=== PATIENT | female | born 1950 | race Caucasian/White ===

== ENCOUNTER 2017-02-28 10:46 | Day surgery (SDCO) | payer OTHER ==
[~2017-02-28] VITALS: Ht 152.4 cm; Wt 59.0 kg
[2017-02-28 11:38] LABS: BASOPHIL 1.4 % (0-2); EOSINOPHIL 1.5 % (0-7); HCT 34.9 % (37.0-47.0); LYMPHOCYTE 17.3 % (15-48); MCH 32.9 pg (25.0-31.0); MCHC 31.5 g/dL (32.0-36.0); MCV 104.5 fL (78.0-100.0); MONOCYTE 9.3 % (0-12); MPV 10.3 fL (6.0-9.5); NEUTROPHIL 70.5 % (41-80); PLT 152 K/uL (150-400); RBC 3.34 M/uL (4.20-5.40); RDW 15.2 % (11.5-14.0); WBC 5.9 K/uL (4.0-10.5)
[2017-02-28 12:00] LABS: BILIRUBIN - TOTAL 0.4 mg/dL (0.1-1.0); GLOBULIN (CALCULATION) 3.1 g/dL (2.2-4.2); POTASSIUM 5.3 mmol/L (3.5-5.1); TOTAL PROTEIN 7.1 g/dL (6.4-8.3)
[2017-02-28 12:07] LABS: LACTIC ACID 1.3 mmol/L (0.5-2.2)
[2017-03-01 04:03] LABS: HCT 36.1 % (37.0-47.0); HGB 11.1 g/dl (12.5-16.0); MCH 32.8 pg (25.0-31.0); MCHC 30.7 g/dL (32.0-36.0); MCV 106.8 fL (78.0-100.0); RBC 3.38 M/uL (4.20-5.40); RDW 15.2 % (11.5-14.0); WBC 6.5 K/uL (4.0-10.5)
[2017-03-01 04:22] LABS: PHOSPHORUS 8.6 mg/dL (2.7-4.5); POTASSIUM 5.7 mmol/L (3.5-5.1)
[2017-03-01 04:50] LABS: CREATININE 11.9 mg/dL (0.5-1.0)
[2017-03-02 06:30] LABS: HCT 34.5 % (37.0-47.0); HGB 10.5 g/dl (12.5-16.0); MCH 32.3 pg (25.0-31.0); MCHC 30.4 g/dL (32.0-36.0); MCV 106.2 fL (78.0-100.0); MPV 10.8 fL (6.0-9.5); RBC 3.25 M/uL (4.20-5.40); RDW 14.9 % (11.5-14.0); WBC 5.5 K/uL (4.0-10.5)
[2017-03-02 06:58] LABS: POTASSIUM 5.4 mmol/L (3.5-5.1)
[2017-03-02 07:02] LABS: CREATININE 7.5 mg/dL (0.5-1.0)
== END 2017-03-02 17:00 | disposition home or self-care (01) ==
LOC: FER 10:46 → FMS 13:20
PROVIDERS: Internal Medicine; ADMIT Internal Medicine
DX: E11.622 Type 2 diabetes mellitus with other skin ulcer (principal); L97.819 Non-pressure chronic ulcer of other part of right lower leg with unspecified severity; I12.0 Hypertensive chronic kidney disease with stage 5 chronic kidney disease or end stage renal disease; E11.22 Type 2 diabetes mellitus with diabetic chronic kidney disease; N18.6 End stage renal disease; Z99.2 Dependence on renal dialysis; E78.5 Hyperlipidemia, unspecified; F32.9 Major depressive disorder, single episode, unspecified; K21.9 Gastro-esophageal reflux disease without esophagitis; G43.909 Migraine, unspecified, not intractable, without status migrainosus; J45.909 Unspecified asthma, uncomplicated; Z87.442 Personal history of urinary calculi; Z90.49 Acquired absence of other specified parts of digestive tract; Z90.710 Acquired absence of both cervix and uterus; Z90.722 Acquired absence of ovaries, bilateral; Z88.0 Allergy status to penicillin; Z88.2 Allergy status to sulfonamides; Z79.4 Long term (current) use of insulin; Z79.82 Long term (current) use of aspirin; Z79.899 Other long term (current) drug therapy; Z98.890 Other specified postprocedural states
CPT/HCPCS: 36415; 73718; 80048; 80053; 82962; 83605; 83970; 84100; 85025; 85651; 87040; 87070; 87205; 93971; 94010; G0378; J1170; J1644; J2405; J3370

== ENCOUNTER 2017-03-07 10:58 | Emergency (ER) | payer OTHER ==
[2017-03-07 11:44] LABS: EOSINOPHIL 0.7 % (0-7); HCT 36.7 % (37.0-47.0); LYMPHOCYTE 11.8 % (15-48); MCH 33.1 pg (25.0-31.0); MCHC 32.7 g/dL (32.0-36.0); MCV 101.1 fL (78.0-100.0); MONOCYTE 12.1 % (0-12); MPV 10.2 fL (6.0-9.5); NEUTROPHIL 74.4 % (41-80); PLT 134 K/uL (150-400); RBC 3.63 M/uL (4.20-5.40); RDW 14.9 % (11.5-14.0); WBC 6.1 K/uL (4.0-10.5)
[2017-03-07 12:02] LABS: LACTIC ACID 1.8 mmol/L (0.5-2.2)
[2017-03-07 12:03] LABS: ALBUMIN 4.1 g/dL (3.4-4.8); BILIRUBIN - TOTAL 0.4 mg/dL (0.1-1.0); GLOBULIN (CALCULATION) 3.6 g/dL (2.2-4.2); TOTAL PROTEIN 7.7 g/dL (6.4-8.3)
[2017-03-07 12:15] LABS: CREATININE 9.4 mg/dL (0.5-1.0)
== END 2017-03-07 14:41 | disposition home or self-care (01) ==
LOC: FER 10:58
PROVIDERS: Nurse Practitioner
DX: M25.561 Pain in right knee (principal); G89.29 Other chronic pain; E11.9 Type 2 diabetes mellitus without complications; M19.90 Unspecified osteoarthritis, unspecified site; Z79.4 Long term (current) use of insulin; Z88.0 Allergy status to penicillin; Z88.2 Allergy status to sulfonamides; Z79.899 Other long term (current) drug therapy
CPT/HCPCS: 36415; 80053; 83605; 85025; 85651; 93971; J1100; J1885; J2270; J2405

== ENCOUNTER 2017-06-01 03:21 | Inpatient (IN) | payer MEDICARE, OTHER ==
[~2017-06-01] VITALS: Ht 165.1 cm; Wt 107.8 kg
[2017-06-01 03:48] LABS: BASOPHIL 0.5 % (0-2); EOSINOPHIL 0.9 % (0-7); HCT 31.1 % (37.0-47.0); HGB 10.2 g/dl (12.5-16.0); LYMPHOCYTE 8.8 % (15-48); MCH 32.4 pg (25.0-31.0); MCHC 32.8 g/dL (32.0-36.0); MCV 98.7 fL (78.0-100.0); MONOCYTE 6.9 % (0-12); MPV 10.1 fL (6.0-9.5); NEUTROPHIL 82.9 % (41-80); PLT 117 K/uL (150-400); RBC 3.15 M/uL (4.20-5.40); RDW 14.9 % (11.5-14.0); WBC 7.6 K/uL (4.0-10.5)
[2017-06-01 03:55] LABS: INR 1.15 (0.9-1.2); PROTHROMBIN TIME 13.8 SECONDS (11.4-13.2); PTT 37.2 SECONDS (24.3-32.1)
[2017-06-01 04:05] LABS: CKMB 2.75 ng/mL (0.97-4.94); MYOGLOBIN 149 ng/mL (26-65)
[2017-06-01 04:06] LABS: BILIRUBIN - TOTAL 0.5 mg/dL (0.1-1.0); CREATININE 7.1 mg/dL (0.5-1.0); GLOBULIN (CALCULATION) 4.3 g/dL (2.2-4.2); PRO-BNP > 35000 pg/mL (0-125); TOTAL PROTEIN 8.3 g/dL (6.4-8.3)
[2017-06-01 14:19] LABS: CKMB 7.04 ng/mL (0.97-4.94)
[2017-06-01 14:22] LABS: TROPONIN T 0.22 ng/mL
[2017-06-02 07:34] LABS: CREATININE 5.7 mg/dL (0.5-1.0); POTASSIUM 4.4 mmol/L (3.5-5.1)
[2017-06-03 05:04] LABS: BASOPHIL 0.2 % (0-2); EOSINOPHIL 0 % (0-7); HCT 27.3 % (37.0-47.0); HGB 8.6 g/dl (12.5-16.0); LYMPHOCYTE 12.2 % (15-48); MCH 31.2 pg (25.0-31.0); MCHC 31.5 g/dL (32.0-36.0); MCV 98.9 fL (78.0-100.0); MONOCYTE 5.9 % (0-12); PLT 107 K/uL (150-400); RBC 2.76 M/uL (4.20-5.40); RDW 14.9 % (11.5-14.0); WBC 4.6 K/uL (4.0-10.5)
[2017-06-03 05:05] LABS: NEUTROPHIL 81.7 % (41-80)
[2017-06-03 05:25] LABS: ALBUMIN 3.7 g/dL (3.4-4.8); BILIRUBIN - TOTAL 0.4 mg/dL (0.1-1.0); CREATININE 4.6 mg/dL (0.5-1.0); GLOBULIN (CALCULATION) 4.1 g/dL (2.2-4.2); MAGNESIUM 2.09 mg/dL (1.40-2.10); POTASSIUM 4.8 mmol/L (3.5-5.1); TOTAL PROTEIN 7.8 g/dL (6.4-8.3)
== END 2017-06-04 10:43 | disposition home health service (06) | DRG 291 ==
LOC: FER 03:21 → FTCU 05:18 → FICU 05:18 → FTCU 17:30 → FMS 06-03 13:00
PROVIDERS: Emergency Medicine; Internal Medicine; Internal Medicine Nephrology; Nurse Practitioner; ADMIT Internal Medicine
PROC: 5A1D00Z (ICD-10-PCS; principal; 2017-06-03)
DX: I13.2 Hypertensive heart and chronic kidney disease with heart failure and with stage 5 chronic kidney disease, or end stage renal disease (principal); N18.6 End stage renal disease; J96.11 Chronic respiratory failure with hypoxia; E11.22 Type 2 diabetes mellitus with diabetic chronic kidney disease; E11.40 Type 2 diabetes mellitus with diabetic neuropathy, unspecified; I08.1 Rheumatic disorders of both mitral and tricuspid valves; I50.32 Chronic diastolic (congestive) heart failure; I25.10 Atherosclerotic heart disease of native coronary artery without angina pectoris; Z95.5 Presence of coronary angioplasty implant and graft; E78.5 Hyperlipidemia, unspecified; Z87.442 Personal history of urinary calculi; K21.9 Gastro-esophageal reflux disease without esophagitis; F41.9 Anxiety disorder, unspecified; Z88.0 Allergy status to penicillin; Z88.2 Allergy status to sulfonamides; E66.01 Morbid (severe) obesity due to excess calories; Z79.4 Long term (current) use of insulin; Z79.82 Long term (current) use of aspirin; I25.2 Old myocardial infarction; Z91.15 Patient's noncompliance with renal dialysis; J44.9 Chronic obstructive pulmonary disease, unspecified; E83.39 Other disorders of phosphorus metabolism; Z79.01 Long term (current) use of anticoagulants; E83.52 Hypercalcemia; D63.1 Anemia in chronic kidney disease; M10.9 Gout, unspecified
CPT/HCPCS: 36415; 36600; 71010; 80048; 80053; 82550; 82553; 82803; 82962; 83735; 83874; 83880; 83970; 84100; 84484; 85025; 85610; 85730; 93005; 94760; J1644; J1815; J2060; J2270; J2405; P9046